=== PATIENT | male | born 1975 | race Hispanic/Latino ===

== ENCOUNTER 2018-09-24 13:23 | Emergency (ER) | payer BC, SELFPAY ==
[2018-09-24] MEDS ORDERED: Acetaminophen/Codeine 30-300mg Tablet ONE (14:25)
[2018-09-24 14:44] LABS: Band 15 % (5-11); Eosinophils 1 % (0-10); Hemoglobin 15.3 g/dL (14.0-18.0); Lymphocytes 3 % (21-51); MDiff Complete? YES; Mean Corpuscular HGB CONC 33.2 g/dL (32.0-36.0); Mean Corpuscular Hemoglobin 30.7 pg (27.0-31.0); Mean Corpuscular Volume 92.5 fL (78.0-98.0); Monocytes 3 % (0-10); Neutrophil 77 % (42-75); Platelet Count 184 thou/uL (130-400); Platelet Morphology Comment Appears Adequate; RBC Distribution Width 12.6 % (11.5-14.5); RBC Morphology @ POSSIBLE INTRACELLULAR PARASITES OBSERVED; Reactive Lymphocytes 1 % (0-10); Red Blood Cell (RBC) Count 5.01 mill/uL (4.70-6.10); White Blood Cell (WBC) Count 4.2 thou/uL (4.8-10.8)
[2018-09-24 15:35] LABS: % Infected Cells W/Parasite 1.1 - 1.5%
== END 2018-09-24 14:53 | disposition home or self-care (01) ==
LOC: SCSER 13:23
DX: R51 Headache (principal); F17.220 Nicotine dependence, chewing tobacco, uncomplicated
CPT/HCPCS: 36415; 85025; 85060; 87207; 99284